=== PATIENT | female | born 1955 ===

== ENCOUNTER 2019-04-09 09:20 | Emergency (ER) | payer OTHER ==
[~2019-04-09] VITALS: Ht 157.5 cm; Wt 75.3 kg
[~2019-04-09 09:20] MED LIST: ORPH100T PO
[2019-04-09] MEDS ORDERED: FORTAMET500 MG (09:48)
[2019-04-09] MEDS ORDERED: ASPIR 8181 MG (09:48)
[2019-04-09] MEDS ORDERED: ZOCOR20 MG (09:48)
[2019-04-09] MEDS ORDERED: TROMBONEX CAPS1 EACH (09:49)
[2019-04-09] MEDS ORDERED: NEURONTIN800 MG (09:50)
== END 2019-04-09 14:42 | disposition home or self-care (01) ==
LOC: ER 09:20
DX: L29.8 Other pruritus (principal); R60.0 Localized edema; T39.395A Adverse effect of other nonsteroidal anti-inflammatory drugs [NSAID], initial encounter; Y92.89 Other specified places as the place of occurrence of the external cause

== ENCOUNTER 2024-06-27 07:32 | Outpatient (CLI) | payer OTHER ==
[~2024-06-27 07:32] MED LIST changes: +ASPIR 8181 MG; +FORTAMET500 MG; +NEURONTIN800 MG; +TROMBONEX CAPS1 EACH; +ZOCOR20 MG
== END 2024-06-27 07:36 | disposition home or self-care (01) ==
LOC: SONOGRAMA 07:32
PROVIDERS: ATTEND Pathology Anatomic Pathology & Clinical Pathology
DX: E04.1 Nontoxic single thyroid nodule (principal); D34 Benign neoplasm of thyroid gland; E07.89 Other specified disorders of thyroid